=== PATIENT | male | born 1950 | race Caucasian/White ===

== ENCOUNTER 2016-10-05 14:36 | Emergency (ER) | payer OTHER ==
[2016-10-05] MEDS ORDERED: PROPARACAINE 0.5% OPHTH DROPS 15 ML ONE (18:13)
== END 2016-10-05 18:38 | disposition home or self-care (01) ==
DX: H11.31 Conjunctival hemorrhage, right eye (principal); W22.8XXA Striking against or struck by other objects, initial encounter
CPT/HCPCS: 99282; 99283; J3490

== ENCOUNTER 2017-08-15 14:41 | Outpatient (CLI) | payer OTHER | END 2017-08-15 14:42 | disposition home or self-care (01) | LOC: SC 14:41 | PROVIDERS: ATTEND Nurse Practitioner Family | DX: G47.33 Obstructive sleep apnea (adult) (pediatric) (principal) | CPT/HCPCS: 99212; 99214 ==

== ENCOUNTER 2017-11-21 09:12 | Outpatient (CLI) | payer OTHER | END 2017-11-21 09:13 | disposition home or self-care (01) | LOC: SC 09:12 | PROVIDERS: ATTEND Internal Medicine Pulmonary Disease | DX: G47.33 Obstructive sleep apnea (adult) (pediatric) (principal) | CPT/HCPCS: 99212; 99213 ==

== ENCOUNTER 2018-01-10 09:11 | Outpatient (CLI) | payer OTHER | END 2018-01-10 09:12 | disposition home or self-care (01) | LOC: SC 09:11 | PROVIDERS: ATTEND Internal Medicine Pulmonary Disease | DX: G47.33 Obstructive sleep apnea (adult) (pediatric) (principal) | CPT/HCPCS: 99212; 99213 ==

== ENCOUNTER 2018-04-23 15:05 | Emergency (ER) | payer OTHER ==
[2018-04-23 15:55] LABS: BILIRUBIN,URINE NEGATIVE (NEGATIVE); GLUCOSE, URINE (UA) NEGATIVE (NEGATIVE); KETONES,URINE (UA) NEGATIVE (NEGATIVE); LEUKOCYTE ESTERASE, URINE NEGATIVE (NEGATIVE); NITRITE,URINE NEGATIVE (NEGATIVE); OCCULT BLOOD,URINE NEGATIVE (NEGATIVE); PROTEIN,URINE NEGATIVE (NEGATIVE); UROBILINOGEN,URINE 0.2 (NORMAL) E.U./dL (NORMAL)
[2018-04-23 15:57] LABS: CLARITY,URINE CLEAR (CLEAR)
[2018-04-23 15:59] LABS: BASOPHILS % (AUTO) 0.2 %; EOSINOPHILS # (AUTO) 0.3 10^3/uL (0.0-0.7); HGB - HEMOGLOBIN 15.5 g/dL (14.0-18.0); LYMPHOCYTES # (AUTO) 1.2 10^3/uL (1.5-3.5); LYMPHOCYTES % (AUTO) 13.2 %; MEAN CORPUSCULAR HEMOGLOBIN 33.5 pg (27.0-31.0); MEAN CORPUSCULAR HGB CONC 35.5 g/dL (32.0-36.0); MEAN CORPUSCULAR VOLUME 94.5 fL (80.0-94.0); MEAN PLATELET VOLUME 8.2 fL (7.4-11.4); MONOCYTES # (AUTO) 0.9 10^3/uL (0.0-1.0); MONOCYTES % (AUTO) 9.4 %; NEUTROPHILS # (AUTO) 6.9 10^3/uL (1.5-6.6); NEUTROPHILS % (AUTO) 74.2 %; PLT - PLATELET COUNT 135 10^3/uL (130-450); RED BLOOD COUNT 4.64 10^6/uL (4.70-6.10); RED CELL DISTRIBUTION WIDTH 13.2 % (12.0-15.0); WHITE BLOOD COUNT 9.3 x10^3/uL (4.8-10.8)
[2018-04-23 16:02] LABS: ALBUMIN/GLOBULIN RATIO 1.4 (1.0-2.2); BILIRUBIN,TOTAL 0.8 mg/dL (0.2-1.0); CALCIUM 8.7 mg/dL (8.5-10.3); CREATININE 0.8 mg/dL (0.6-1.2); TOTAL PROTEIN 6.9 g/dL (6.7-8.2)
--- NOTE | 2018-04-23 16:16 | ED Physician Documentation ---
PD HPI ABD PAIN - Stated complaint Stated Complaint: LOW AB PX - Chief complaint Chief Complaint: Abd Pain - History obtained from History obtained from: Patient, Family - History of Present Illness Timing - onset: How many weeks ago (1) Timing - duration: Weeks (1) Timing - details: Gradual onset, Still present Quality: Sharp, Pain Location: LLQ Improved by: Laying still Worsened by: Moving, Position, Palpation Associated symptoms: Constipation. No: Fever, Nausea, Vomiting, Hematemesis, Diarrhea Similar symptoms before: Has not had sx before Recently seen: Not recently seen - Additional information Additional information: Previously healthy 67 year old male has developed some pain in his abdomen over the past week. He states he has had a decreased stool output and some bloating of his abdomen and the pain is now localized to the left lower quadrant he has developed some chills and the pain is much worse today than yesterday. He has not had this happen to him previously he is only had a hernia operation at 3 days old previously Review of Systems Constitutional: reports: Chills, Fatigue. denies: Fever Eyes: denies: Decreased vision Ears: denies: Ear pain Nose: denies: Rhinorrhea / runny nose, Congestion Throat: denies: Sore throat Cardiac: denies: Chest pain / pressure, Palpitations Respiratory: denies: Dyspnea, Cough GI: reports: Abdominal Pain, Abdominal Swelling, Nausea, Constipation. denies: Vomiting, Diarrhea : denies: Dysuria, Frequency PD PAST MEDICAL HISTORY - Past Medical History Past Medical History: Yes Cardiovascular: None Respiratory: Sleep apnea, CPAP use Neuro: Migraines Endocrine/Autoimmune: None GI: Hemorrhoids, Other : None HEENT: None Psych: None Musculoskeletal: Osteoarthritis, Chronic back pain Derm: None Other Past Medical History: Rectal fissure surgery - Past Surgical History Past Surgical History: Yes - Present Medications Home Medications: Ambulatory Orders Medication Instructions Recorded Confirmed Ciprofloxacin HCl [Cipro] 500 mg PO BID #14 tablet 04/23/18 Metronidazole [Flagyl] 500 mg PO BID #14 tablet 04/23/18 - Allergies Allergies/Adverse Reactions: Allergies Allergy/AdvReac Type Severity Reaction Status Date / Time No Known Drug Allergies Allergy Verified 04/23/18 15:14 - Social History Does the pt smoke?: No Smoking Status: Never smoker ETOH Use: Wine Does the pt have substance abuse?: No - Immunizations Immunizations are current?: Yes - POLST Patient has POLST: No PD ED PE NORMAL - Vitals Vital signs reviewed: Yes (normal ) - General General: Alert and oriented X 3, No acute distress, Well developed/nourished - HEENT HEENT: Atraumatic, PERRL, EOMI - Neck Neck: Supple, no meningeal sign - Cardiac Cardiac: RRR, No murmur - Respiratory Respiratory: No respiratory distress, Clear bilaterally - Abdomen Abdomen: Soft, Other (distended and tender specifically in the LLQ and no the right or upper abdomen. The bladder is palpable not over distended and non- tender. ) - Back Back: No CVA TTP, No spinal TTP - Derm Derm: Normal color, Warm and dry, No rash - Extremities Extremities: No deformity, No edema - Neuro Neuro: Alert and oriented X 3, No motor deficit, No sensory deficit, Normal speech Eye Opening: Spontaneous Motor: Obeys Commands Verbal: Oriented GCS Score: 15 - Psych Psych: Normal mood, Normal affect Results - Vitals Vitals: Vital Signs - 24 hr 04/23/18 15:12 Temperature 36.4 C L Heart Rate 65 Respiratory 16 Rate Blood Pressure 114/72 O2 Saturation 97 Oxygen O2 Source Room air - Labs Labs: Laboratory Tests 04/23/18 04/23/18 04/23/18 15:20 15:33 15:33 WBC 9.3 RBC 4.64 L Hgb 15.5 Hct 43.8 MCV 94.5 H MCH 33.5 H MCHC 35.5 RDW 13.2 Plt Count 135 MPV 8.2 Neut # (Auto) 6.9 H Lymph # (Auto) 1.2 L [place] # (Auto) 0.9 Eos # (Auto) 0.3 Baso # (Auto) 0.0 Absolute Nucleated RBC 0.01 Nucleated RBC % 0.1 Sodium 138 Potassium 3.4 L Chloride 103 Carbon Dioxide 28 Anion Gap 7.0 BUN 19 Creatinine 0.8 Estimated GFR (MDRD) 97 Glucose 97 Calcium 8.7 Total Bilirubin 0.8 AST 22 ALT 26 Alkaline Phosphatase 68 Total Protein 6.9 Albumin 4.0 Globulin 2.9 Albumin/Globulin Ratio 1.4 Lipase 40 Urine Color YELLOW Urine Clarity CLEAR Urine pH 7.0 Ur Specific Downs <=1.005 Urine Protein NEGATIVE Urine Glucose (UA) NEGATIVE Urine Ketones NEGATIVE Urine Occult Blood NEGATIVE Urine Nitrite NEGATIVE Urine Bilirubin NEGATIVE Urine Urobilinogen 0.2 (NORMAL) Ur Leukocyte Esterase NEGATIVE Ur Microscopic Review NOT INDICATED Urine Culture Comments NOT INDICATED - Rads (name of study) CT abdomen/pelvis with Radiology: Prelim report reviewed (Impression: 1. Acute proximal sigmoid colon diverticulitis without evidence for perforation. 2. 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 3. Mild splenomegaly.), EMP read indepedently, See rad report Procedures - Bedside sono Bedside sono by EMP: With use of bedside ultrasound the bladder is imaged it does not appear over full and it is not specifically sonographically tender. PD MEDICAL DECISION MAKING - ED course Complexity details: reviewed old records, reviewed results, re-evaluated patient , considered differential, d/w patient, d/w family ED course: 67-year-old male with chills and left lower quadrant abdominal pain has uncomplicated diverticulitis on CT exam of the abdomen and pelvis. He is administered oral Cipro and Flagyl here in the emergency department and he is indicating he will not take pain medications home today. - Sepsis Event Vital Signs: Vital Signs - 24 hr 04/23/18 15:12 Temperature 36.4 C L Heart Rate 65 Respiratory 16 Rate Blood Pressure 114/72 O2 Saturation 97 Oxygen O2 Source Room air Departure - Departure Disposition: 01 Home, Self Care Clinical Impression: Diverticulitis of gastrointestinal tract Condition: Stable Instructions: ED Diverticulitis Follow-Up: Rudolph Rosado MD [Primary Care Provider] - Prescriptions: Ciprofloxacin HCl [Cipro] 500 mg PO BID #14 tablet Metronidazole [Flagyl] 500 mg PO BID #14 tablet
[2018-04-23] MEDS ORDERED: IOPAMIDOL-300 100 ML VIAL ONE (16:28)
[2018-04-23] MEDS: SODIUM CHLORIDE 0.9% 1,000 ML IV ONE (16:42)
[2018-04-23] MEDS: IOPAMIDOL-300 100 ML VIAL IVP ONE (16:45)
--- NOTE | 2018-04-23 16:56 | CT Report ---
Procedure Date: 04/23/2018 Accession Number: [id number] / [id number] Procedure: CT - Abdomen/Pelvis W/ CPT Code: FULL RESULT: EXAM: CT ABDOMEN AND PELVIS EXAM DATE: 04/23/2018 04:42 PM. CLINICAL HISTORY: Left lower quadrant pain COMPARISONS: None. TECHNIQUE: Routine helical CT imaging was performed through the abdomen and pelvis. IV contrast: 100 mL Isovue-300. Enteric contrast: No. Reconstructions: Coronal and sagittal. In accordance with CT protocol optimization, one or more of the following dose reduction techniques were utilized for this exam: automated exposure control, adjustment of mA and/or KV based on patient size, or use of iterative reconstructive technique. FINDINGS: Lung Bases: Mildly elevated left hemidiaphragm with adjacent linear atelectasis and/or scarring. Liver: Normal. No focal hepatic lesion. Gallbladder/Bile Ducts: Unremarkable. No visualized stones or biliary ductal dilatation. Spleen: Mildly enlarged, 15 cm in length. Pancreas: Normal. Adrenal Glands: Normal. Kidneys and Ureters: Normal. No stones, hydronephrosis, or hydroureter. Peritoneal Cavity/Bowel: Descending and sigmoid colon diverticulosis. Focal thickening of the proximal sigmoid colon wall with adjacent inflammatory fat stranding, centered around an inflamed diverticulum, compatible with acute diverticulitis. No free fluid or pneumoperitoneum. No rim-enhancing focal fluid collection to suggest abscess. No evidence for bowel obstruction. The appendix is normal. Hazy infiltration of the central mesenteric containing numerous subcentimeter nodes with halos of fatty sparing around the mesenteric vasculature, appearance compatible with mesenteric panniculitis. Pelvic Organs: The prostate gland is mildly enlarged, measuring 5.3 cm in transverse dimension. The bladder is within normal limits. Vasculature: Trace atherosclerotic calcifications in the distal abdominal aorta and left common iliac artery. Bones: Chronic bilateral L5 pars defects with associated severe degenerative disk disease and grade 1 anterolisthesis at L5-S1. No acute bony abnormality. Other: Tiny fat-containing umbilical hernia. Small fat-containing right inguinal hernia. IMPRESSION: 1. Acute proximal sigmoid colon diverticulitis without evidence for perforation. 2. 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 3. Mild splenic megaly. RADIA
[2018-04-23] MEDS: metroNIDAZOLE 250 MG TABLET PO STA (18:07)
[2018-04-23] MEDS: CIPROFLOXACIN 250 MG TABLET PO STA (18:07)
[2018-04-23] MEDS ORDERED: CIPROFLOXACIN 250 MG TABLET PO STA (18:10)
[2018-04-23] MEDS ORDERED: metroNIDAZOLE 250 MG TABLET PO STA (18:10)
[2018-04-23 18:21] VITALS: BP 115/78
== END 2018-04-23 18:21 | disposition home or self-care (01) ==
LOC: ED 15:05
DX: K57.32 Diverticulitis of large intestine without perforation or abscess without bleeding (principal)
CPT/HCPCS: 36415; 74177; 80053; 81003; 83690; 85025; 96360; 99283; 99284; A9270; Q9967; 81001; 87086

== ENCOUNTER 2019-05-23 09:06 | Outpatient (CLI) | payer MEDICARE, OTHER ==
--- NOTE | 2019-05-23 17:08 | CARDIAC PROCEDURE NOTE ---
DATE OF SERVICE: 05/23/2019 Physician: Regi Aldridge MD, [facility] INDICATION: Fatigue, dizziness. CARDIAC RISK FACTORS: Male gender, advanced age. PROCEDURE: After signing informed consent, the patient underwent a Vazquez-protocol treadmill stress test. No imaging was ordered with this test. RESTING HEART RATE: 52. PEAK HEART RATE: 135 (88% predicted maximum heart rate for age. RESTING BLOOD PRESSURE: 137/80. PEAK BLOOD PRESSURE: 170/60. The patient exercised for 9 minutes and 20 seconds on a Vazquez-protocol treadmill stress test. He achieved a peak heart rate of 135 (88% pred max HR) and 10.7 METS. The patient had moderate shortness of breath at peak, oxygen saturation was 95% on room air at peak. He described his perceived exertion at 15-16/20 on a Yari scale indicating significant difficulty. The patient's heart rate was slow to increase, and had good recovery after exercise. The patient had no chest pain and did not describe worsened "fatigue" as he exercised. RESTING EKG: Sinus bradycardia at a rate of 52, left atrial and right atrial enlargement, intraventricular conduction delay. EKG AT PEAK: A ventricular couplet is seen, new ST depressions that are upsloping in leads V4 through V6, new T-wave flattening in leads II and aVF, new ST depressions that are downsloping in leads II, III, aVF. SUMMARY 1. Abnormal resting EKG with bradycardia and biatrial enlargement. 2. Fair to good exercise tolerance. 3. Abnormal EKG at peak, the findings may be suggestive of ischemia. 4. This patient's cardiac risk is MODERATE-HIGH, based on this test. RECOMMENDATIONS: 1. Repeat evaluation for coronary artery disease with imaging is recommended (stress-echo, treadmill-nuclear test or pharmaceutical test with nuclear imaging). 2. Also consider a Holter monitor to evaluate for abnormal bradycardia as the cause of his "fatigue." cc: Miguel A Leyva DO TD: 05/23/2019 16:59 MTDD
== END 2019-05-23 09:07 | disposition home or self-care (01) ==
LOC: DI 09:06
PROVIDERS: ATTEND Family Medicine
DX: R53.83 Other fatigue (principal); R42 Dizziness and giddiness; R00.1 Bradycardia, unspecified; R94.31 Abnormal electrocardiogram [ECG] [EKG]
CPT/HCPCS: 93017

== ENCOUNTER 2020-03-04 07:00 | Outpatient (CLI) | payer MEDICARE, OTHER | END 2020-03-04 23:59 | disposition home or self-care (01) | LOC: LAB.R 07:00 | PROVIDERS: ATTEND Nurse Practitioner Family | DX: R06.02 Shortness of breath (principal); Z20.828 Contact with and (suspected) exposure to other viral communicable diseases | CPT/HCPCS: 81599 ==

== ENCOUNTER 2021-02-02 15:30 | Outpatient (CLI) | payer MEDICARE, OTHER ==
[2021-02-02 15:58] LABS: BASOPHILS % (AUTO) 0.4 %; EOSINOPHILS # (AUTO) 0.2 10^3/uL (0.0-0.7); EOSINOPHILS % (AUTO) 3.7 %; HCT - HEMATOCRIT 45.5 % (42.0-52.0); LYMPHOCYTES # (AUTO) 1.4 10^3/uL (1.5-3.5); LYMPHOCYTES % (AUTO) 25.3 %; MEAN CORPUSCULAR HEMOGLOBIN 32.5 pg (27.0-31.0); MEAN CORPUSCULAR HGB CONC 35.2 g/dL (32.0-36.0); MEAN CORPUSCULAR VOLUME 92.5 fL (80.0-94.0); MEAN PLATELET VOLUME 9.4 fL (7.4-11.4); MONOCYTES # (AUTO) 0.5 10^3/uL (0.0-1.0); MONOCYTES % (AUTO) 9.5 %; NEUTROPHILS # (AUTO) 3.3 10^3/uL (1.5-6.6); NEUTROPHILS % (AUTO) 60.7 %; PLT - PLATELET COUNT 145 10^3/uL (130-450); RED BLOOD COUNT 4.92 10^6/uL (4.70-6.10); RED CELL DISTRIBUTION WIDTH 12.7 % (12.0-15.0); WHITE BLOOD COUNT 5.5 x10^3/uL (4.8-10.8)
[2021-02-02 16:20] LABS: ALBUMIN 4.3 g/dL (3.2-5.5); ALBUMIN/GLOBULIN RATIO 1.7 (1.0-2.2); ALKALINE PHOSPHATASE 63 IU/L (42-121); ALT ALANINE AMINOTRANSFERASE 32 IU/L (10-60); AST ASPARTATE AMINOTRANSFERASE 24 IU/L (10-42); BILIRUBIN,TOTAL 0.7 mg/dL (0.2-1.0); BUN - BLOOD UREA NITROGEN 21 mg/dL (6-20); CARBON DIOXIDE - CO2 29 mmol/L (21-32); CHLORIDE 105 mmol/L (101-111); CHOL/HDL RATIO 4.2 (<5.0); CHOLESTEROL 178 mg/dL; CREATININE 0.9 mg/dL (0.6-1.2); GFR - MDRD 84 (>89); GLUCOSE 111 mg/dL (70-100); HDL CHOLESTEROL 42 mg/dL; LDL CHOLESTEROL,CALCULATED 107 mg/dL; LDL/HDL RATIO 2.5 (<3.6); POTASSIUM 3.8 mmol/L (3.5-5.0); SODIUM 141 mmol/L (135-145); TOTAL PROTEIN 6.9 g/dL (6.7-8.2); TRIGLYCERIDES 143 mg/dL; VLDL CHOLESTEROL 29 mg/dL
== END 2021-02-02 15:31 | disposition home or self-care (01) ==
LOC: LAB 15:30
PROVIDERS: ATTEND Internal Medicine
DX: I10 Essential (primary) hypertension (principal); Z12.5 Encounter for screening for malignant neoplasm of prostate
CPT/HCPCS: 36415; 80053; 80061; 85025; G0103; 83721; 84153

== ENCOUNTER 2022-11-20 19:39 | Emergency (ER) | payer MEDICARE, OTHER ==
--- NOTE | 2022-11-20 20:06 | ED Physician Documentation ---
PD HPI DYSPNEA - Stated complaint Stated Complaint: SOA - Chief complaint Chief Complaint: Resp - History obtained from History obtained from: Patient - History of Present Illness Associated symptoms: Cough. No: Fever - Additional information Additional information: HPI from patient. Patient complains of symptoms that began 3 days ago with nasal congestion, po stnasal drip, rhinorrhea. Subsequently, he also developed a sore throat, although he says that is improved and at the time of this evaluation has mostly resolved. No fevers at home, with Tmax of 99 degrees. His chief concern is the development of a productive cough over the past 1 to 2 days with dyspnea. He denies any chest pain, pressure, squeezing. He does feel as though his lungs are constricted which she says has happened in the past and for which she has been prescribed an albuterol MDI. He says previous such episodes were associated with respiratory infections including pneumonia. He says he has been using the albuterol MDI over the past couple of days with improvement with each use but recurrence of symptoms once the effect wears off.Patient says he took a home COVID test earlier today and the result was negative.Patient says he also took a dose of loratadine earlier today without any significant change in symptoms. Review of Systems Constitutional: denies: Fever Throat: reports: Sore throat Cardiac: denies: Chest pain / pressure Respiratory: reports: Dyspnea, Cough. denies: Hemoptysis PD PAST MEDICAL HISTORY - Past Medical History Cardiovascular: None Respiratory: Sleep apnea, CPAP use Neuro: Migraines Endocrine/Autoimmune: None GI: Hemorrhoids, Other : None HEENT: None Psych: None Musculoskeletal: Osteoarthritis, Chronic back pain Derm: None - Past Surgical History Past Surgical History: Yes - Present Medications Home Medications: Ambulatory Orders Medication Instructions Recorded Confirmed Ciprofloxacin HCl [Cipro] 500 mg PO BID #14 tablet 04/23/18 metroNIDAZOLE [Flagyl] 500 mg PO BID #14 tablet 04/23/18 Albuterol Sulf [Ventolin Hfa 1 - 2 puffs INH Q4HR PRN #1 each 11/20/22 Inhaler] predniSONE [Deltasone] 40 mg PO DAILY 4 Days #8 tablet 11/20/22 - Allergies Allergies/Adverse Reactions: Allergies Allergy/AdvReac Type Severity Reaction Status Date / Time No Known Drug Allergies Allergy Verified 11/20/22 19:47 - Social History Does the pt smoke?: No Smoking Status: Never smoker Does the pt have substance abuse?: No - Immunizations Immunizations are current?: Yes - POLST Patient has POLST: No PD ED PE NORMAL - Vitals Vital signs reviewed: Yes - General General: Alert and oriented X 3, No acute distress, Well developed/nourished - Cardiac Cardiac: RRR, No murmur - Respiratory Respiratory: No respiratory distress PD ED PE EXPANDED - Respiratory Respiratory: Wheezing (trace end-expiratory wheezing bilaterally but good and equal air movement). No: Rhonchi, Rales Results - Vitals Vitals: Oxygen O2 Source Room air - Labs Labs: Laboratory Tests 11/20/22 19:47 Nasal Adenovirus (PCR) NOT DETECTED Nasal B. parapertussis DNA (PCR) NOT DETECTED Nasal Coronavir 229E PCR NOT DETECTED Nasal Coronavir HKU1 PCR NOT DETECTED Nasal Coronavir NL63 PCR NOT DETECTED Nasal Coronavir OC43 PCR NOT DETECTED Nasal Enterovir/Rhinovir PCR DETECTED A Nasal Influenza B PCR NOT DETECTED Nasal Influenza A PCR NOT DETECTED Nasal Parainfluen 1 PCR NOT DETECTED Nasal Parainfluen 2 PCR NOT DETECTED Nasal Parainfluen 3 PCR NOT DETECTED Nasal Parainfluen 4 PCR NOT DETECTED Nasal RSV (PCR) NOT DETECTED Nasal B.pertussis DNA PCR NOT DETECTED Nasal C.pneumoniae (PCR) NOT DETECTED Titus Human Metapneumo PCR NOT DETECTED Nasal M.pneumoniae (PCR) NOT DETECTED Nasal SARS-CoV-2 (PCR) NOT DETECTED - Rads (name of study) chest xray Radiology: Prelim report reviewed, EMP read indepedently, See rad report PD Medical Decision Making - ED course Complexity details: reviewed results, re-evaluated patient, considered differential, d/w patient ED course: Tests ordered and results reviewed by me: respiratory PCR panel, chest xray. No abnormalities on chest xray. Respiratory PCR panel is positive for enterovirus/rhinovirus. Presentation, exam, and test results are suggestive of bronchitis with bronchospasm is given 40mg prednisone PO in ED as well as duoneb treatment, and patient reports improvement with these interventions. Results d/w patient as well as suspected diagnosis with expected course of illness as well as return precautions. Patient says he is nearly out of his albuterol MDI and thus rx is electronically submitted to his pharmacy of choice, as well as rx for four more days of QD prednisone. Departure - Departure Disposition: 01 Home, Self Care Clinical Impression: Bronchitis with bronchospasm Condition: Good Instructions: ED Bronchitis Asthmatic Follow-Up: Jae Centeno MD [Primary Care Provider] - (3-5 days if symptoms persist) Prescriptions: Albuterol Sulf [Ventolin Hfa Inhaler] 1 - 2 puffs INH Q4HR PRN #1 each PRN Reason: Shortness Of Air/Wheezing predniSONE [Deltasone] 40 mg PO DAILY 4 Days #8 tablet Comments: Your chest xray was clear; no evidence of pneumonia at this time. Based on your symptoms and exam, I suspect bronchitis ("chest cold", which typically does not show on chest xray and does not require antibiotics) with bronchospasm (asthma- like constriction of the airways). You were given a dose of steroid (prednisone) in the emergency department; this was given for its anti-inflammatory properties, and typically will help gradually reduce the bronchospasm/difficulty breathing. I have electronically submitted prescriptions for 4 more days of the prednisone as well as an albuterol inhaler to the [facility] pharmacy in [place]. The nasal swab was tested for several different viruses, and this was positive for rhinovirus; this is considered a "common cold" virus. The swab was negative for all the other viruses tested including RSV, influenza, and COVID. Discharge Date/Time: 11/20/22 23:09
--- NOTE | 2022-11-20 20:13 | XRAY Report ---
PROCEDURE: Chest 2 View X-Ray INDICATIONS: cough TECHNIQUE: 2 views of the chest were acquired. COMPARISON: None. FINDINGS: Surgical changes and devices: None. Lungs and pleura: No pleural effusions or pneumothorax. Lungs are clear. Again noted is asymmetric mild elevation of the left hemidiaphragm, also present on a CT scanning procedure from 04/23/2018 Mediastinum: Mediastinal contours are normal. Heart size is normal. Bones and chest wall: No suspicious bony abnormalities. Soft tissues appear unremarkable. IMPRESSION: Chronic mild asymmetric elevation of the left hemidiaphragm, present also in 2018. No acute disease, source of cough is not seen. Reviewed by: Joseph Harvey MD on 11/20/2022 8:12 PM PST Approved by: Joseph Harvey MD on 11/20/2022 8:12 PM PST Station ID: [id number]
[2022-11-20] MEDS ORDERED: IPRATROPIUM/ALBUTEROL 3 ML NEB INH STA (20:25)
[2022-11-20] MEDS ORDERED: predniSONE 20 MG TABLET PO STA (20:25)
[2022-11-20 21:53] LABS: B. PARAPERTUSSIS- RESP PCR PAN NOT DETECTED; B. PERTUSSIS- RESP PCR PANEL NOT DETECTED; C. PNEUMONIAE- RESP PCR PANEL NOT DETECTED; CORONAVIRUS 229E-RESP PCR NOT DETECTED; CORONAVIRUS HKU1-RESP PCR NOT DETECTED; CORONAVIRUS NL63-RESP PCR NOT DETECTED; CORONAVIRUS OC43-RESP PCR NOT DETECTED; HUMAN METAPNEUMOVIRUS NOT DETECTED; INFLUENZA A- RESP PCR PANEL NOT DETECTED; INFLUENZA B - RESP PCR PANEL NOT DETECTED; M. PNEUMONIAE- RESP PCR PANEL NOT DETECTED; PARAINFLUENZA VIRUS 1 NOT DETECTED; PARAINFLUENZA VIRUS 2 NOT DETECTED; PARAINFLUENZA VIRUS 3 NOT DETECTED; PARAINFLUENZA VIRUS 4 NOT DETECTED; RHINOVIRUS/ENTEROVIRUS DETECTED; RSV- RESP PCR PANEL NOT DETECTED; SARS-CoV-2 -RESP PCR PANEL NOT DETECTED
[2022-11-20 21:58] VITALS: BP 144/68
== END 2022-11-20 23:09 | disposition home or self-care (01) ==
LOC: ED 19:39
DX: J40 Bronchitis, not specified as acute or chronic (principal); J21.9 Acute bronchiolitis, unspecified
CPT/HCPCS: 71046; 87633; 94640; 94664; 99283; 99284; J7512

== ENCOUNTER 2022-12-29 07:16 | Emergency (ER) | payer MEDICARE, OTHER ==
--- NOTE | 2022-12-29 07:39 | ED Physician Documentation ---
PD HPI CHEST PAIN - Stated complaint Stated Complaint: L ARM/SIDE PX - Chief complaint Chief Complaint: Cardiac - History obtained from History obtained from: Patient - Additional information Additional information: 72-year-old gentleman with history of intermittent hyperlipidemia, no history of coronary disease, hypertension. He was at rest this morning at 7 AM developed a severe pain in the left bicep that radiated down the arm and up to the left jaw. There was no primary chest pain. Not short of breath with it, although noting he has been short of breath for about a month due to a viral respiratory infection and has been recently on prednisone, not now. He is pain-free now. The total pain lasted about 5 minutes. PD PAST MEDICAL HISTORY - Past Medical History Cardiovascular: None Respiratory: Sleep apnea, CPAP use Neuro: Migraines Endocrine/Autoimmune: None GI: Hemorrhoids, Other : None HEENT: None Psych: None Musculoskeletal: Osteoarthritis, Chronic back pain Derm: None - Past Surgical History Past Surgical History: Yes - Present Medications Home Medications: Ambulatory Orders Medication Instructions Recorded Confirmed Albuterol Sulf [Ventolin Hfa 1 - 2 puffs INH Q4HR PRN #1 each 11/20/22 12/29/22 Inhaler] - Allergies Allergies/Adverse Reactions: Allergies Allergy/AdvReac Type Severity Reaction Status Date / Time latex Allergy Itching Verified 12/29/22 07:21 - Social History Does the pt smoke?: No Smoking Status: Never smoker Does the pt have substance abuse?: No - Immunizations Immunizations are current?: Yes - POLST Patient has POLST: No PD ED PE NORMAL - Vitals Vital signs reviewed: Yes - General General: Alert and oriented X 3, No acute distress - HEENT HEENT: PERRL, EOMI - Neck Neck: Supple, no meningeal sign, No bony TTP - Cardiac Cardiac: RRR, No murmur - Respiratory Respiratory: Other (Mild expiratory wheezes and rhonchi throughout without focal findings) - Abdomen Abdomen: Non tender - Extremities Extremities: No edema, No calf tenderness / cord - Neuro Neuro: Alert and oriented X 3, Normal speech Results - Vitals Vitals: Vital Signs - 24 hr 12/29/22 12/29/22 12/29/22 07:21 07:24 10:01 Temperature 36.2 C L Heart Rate 56 L 59 L 50 L Respiratory 16 14 16 Rate Blood Pressure 147/70 H 120/74 O2 Saturation 96 97 Oxygen O2 Source Room air - EKG (time done) 0731 EKG releavant findings:: EKG personally interpreted by author of this note. Relevant findings are: Rate: Rate (enter#) (55) Rhythm: NSR Intervals: Other ([place] LBBB) QRS: Normal Ischemia: Non specific changes Compare to prior EKG: Unchanged from prior EKG (I was able to look at his resting treadmill EKG on page 9 of 26 from May 23, 2019. No change.) Computer interpretation: Agree with computer - Labs Labs: Laboratory Tests 12/29/22 12/29/22 12/29/22 07:33 07:33 07:33 WBC 5.8 RBC 5.28 Hgb 16.7 Hct 48.4 MCV 91.7 MCH 31.6 H MCHC 34.5 RDW 12.6 Plt Count 144 MPV 9.4 Neut # (Auto) 3.3 Lymph # (Auto) 1.6 [place] # (Auto) 0.5 Eos # (Auto) 0.2 Baso # (Auto) 0.0 Absolute Nucleated RBC 0.00 Nucleated RBC % 0.0 Sodium 140 Potassium 3.9 Chloride 105 Carbon Dioxide 28 Anion Gap 7.0 BUN 18 Creatinine 0.9 Estimated GFR (MDRD) 83 L Glucose 100 Calcium 8.7 Total Bilirubin 0.6 AST 21 ALT 28 Alkaline Phosphatase 69 Troponin I High Sens 5.8 Total Protein 6.9 Albumin 3.9 Globulin 3.0 Albumin/Globulin Ratio 1.3 Lipase 41 12/29/22 09:30 WBC RBC Hgb Hct MCV MCH MCHC RDW Plt Count MPV Neut # (Auto) Lymph # (Auto) [place] # (Auto) Eos # (Auto) Baso # (Auto) Absolute Nucleated RBC Nucleated RBC % Sodium Potassium Chloride Carbon Dioxide Anion Gap BUN Creatinine Estimated GFR (MDRD) Glucose Calcium Total Bilirubin AST ALT Alkaline Phosphatase Troponin I High Sens 5.1 Total Protein Albumin Globulin Albumin/Globulin Ratio Lipase PD Medical Decision Making - ED course ED course: 72-year-old gentleman with atraumatic left arm pain, the concern would be that it was an anginal equivalent. It was not persistent, nor was it radiating to the back. Initial EKG, CBC, troponin, CMP all normal. Given that it was fairly acute repeat troponin was done after 2 hours and flat abdomen normal. Advised follow-up for stress testing. Departure - Departure Disposition: 01 Home, Self Care Clinical Impression: Left arm pain Condition: Good Record reviewed to determine appropriate education?: Yes Instructions: ED Chest Pain Atypical Unkn Cause Comments: The cause of your left arm pain is not clear. No evidence of active cardiac disease. Return if pain recurs. Otherwise follow-up with your primary care physician for consideration for stress testing. Take a baby aspirin a day until this process is complete. Discharge Date/Time: 12/29/22 10:16
[2022-12-29 07:41] LABS: BASOPHILS % (AUTO) 0.5 %; EOSINOPHILS # (AUTO) 0.2 10^3/uL (0.0-0.7); EOSINOPHILS % (AUTO) 3.4 %; HCT - HEMATOCRIT 48.4 % (42.0-52.0); HGB - HEMOGLOBIN 16.7 g/dL (14.0-18.0); LYMPHOCYTES # (AUTO) 1.6 10^3/uL (1.5-3.5); LYMPHOCYTES % (AUTO) 27.6 %; MEAN CORPUSCULAR HEMOGLOBIN 31.6 pg (27.0-31.0); MEAN CORPUSCULAR HGB CONC 34.5 g/dL (32.0-36.0); MEAN CORPUSCULAR VOLUME 91.7 fL (80.0-94.0); MEAN PLATELET VOLUME 9.4 fL (7.4-11.4); MONOCYTES # (AUTO) 0.5 10^3/uL (0.0-1.0); MONOCYTES % (AUTO) 9.3 %; NEUTROPHILS # (AUTO) 3.3 10^3/uL (1.5-6.6); NEUTROPHILS % (AUTO) 57.5 %; PLT - PLATELET COUNT 144 10^3/uL (130-450); RED BLOOD COUNT 5.28 10^6/uL (4.70-6.10); RED CELL DISTRIBUTION WIDTH 12.6 % (12.0-15.0); WHITE BLOOD COUNT 5.8 x10^3/uL (4.8-10.8)
--- OUTSIDE RECORDS SUMMARY | 2022-12-29 07:49 | EXTERNAL MEDICAL SUMMARY RPT | Continuity of Care Document ---
:1950 Author Organization [facility] Address [address] [place] [address] Phone Care Team Providers Name Role Phone Unavailable Unavailable Unavailable Sammy Bejarano Ma Unavailable Unavailable Sammy Bejarano Ma Unavailable Unavailable Sammy Bejarano Ma Unavailable Unavailable Allergies No information. Encounters No information. Functional Status No information. Immunizations No information. Medications date description facility 2022-12-21 00:00 prednisone All 2022-12-21 00:00 prednisone All 2022-12-21 00:00 prednisone All 2022-12-21 00:00 prednisone All 2022-12-21 00:00 prednisone All 2022-12-21 00:00 prednisone All 2022-12-21 00:00 prednisone All 2022-12-21 00:00 prednisone All 2022-12-21 00:00 prednisone All 2022-12-21 00:00 PREDNISONE All 2022-12-21 00:00 PREDNISONE All 2022-12-21 00:00 PREDNISONE All 2022-12-21 00:00 prednisone All 2022-12-21 00:00 prednisone All 2022-12-21 00:00 prednisone All 2022-12-21 00:00 albuterol sulfate All 2022-12-21 00:00 albuterol sulfate All 2022-12-21 00:00 albuterol sulfate All 2022-12-21 00:00 fluticasone propionate All 2022-12-23 00:00 fluticasone propionate All 2022-12-23 00:00 fluticasone propionate All 2022-12-21 00:00 albuterol sulfate All 2022-12-21 00:00 albuterol sulfate All 2022-12-21 00:00 albuterol sulfate All 2022-12-21 00:00 albuterol sulfate All 2022-12-21 00:00 albuterol sulfate All 2022-12-21 00:00 albuterol sulfate All 2022-12-21 00:00 fluticasone propionate All 2022-12-23 00:00 fluticasone propionate All 2022-12-23 00:00 fluticasone propionate All 2022-12-21 00:00 albuterol sulfate All 2022-12-21 00:00 albuterol sulfate All 2022-12-21 00:00 albuterol sulfate All 2022-12-21 00:00 fluticasone propionate All 2022-12-23 00:00 fluticasone propionate All 2022-12-23 00:00 fluticasone propionate All 2022-12-21 00:00 fluticasone propionate All 2022-12-23 00:00 fluticasone propionate All 2022-12-23 00:00 fluticasone propionate All Problems date description facility 2022-12-21 00:00 Acute asthma All 2022-12-21 00:00 Acute asthma All 2022-12-21 00:00 Acute asthma All 2022-12-21 00:00 Viral upper respiratory tract infection All 2022-12-21 00:00 Viral upper respiratory tract infection All 2022-12-21 00:00 Viral upper respiratory tract infection All 2022-12-21 00:00 Acute upper respiratory infections of u nspecified site All 2022-12-21 00:00 Acute upper respiratory infections of u nspecified site All 2022-12-21 00:00 Acute upper respiratory infections of u nspecified site All 2022-12-21 00:00 Asthma, unspecified with (acute) exacer bation All 2022-12-21 00:00 Asthma, unspecified with (acute) exacer bation All 2022-12-21 00:00 Asthma, unspecified with (acute) exacer bation All 2022-12-21 00:00 Acute upper respiratory infection, unsp ecified All 2022-12-21 00:00 Acute upper respiratory infection, unsp ecified All 2022-12-21 00:00 Acute upper respiratory infection, unsp ecified All 2022-12-21 00:00 Unspecified asthma with (acute) exacerb ation All 2022-12-21 00:00 Unspecified asthma with (acute) exacerb ation All 2022-12-21 00:00 Unspecified asthma with (acute) exacerb ation All Procedures date description facility 2022-12-21 00:00 Visit Code Hold All 2022-12-21 00:00 Visit Code Hold All 2022-12-21 00:00 Visit Code Hold All Results/Labs No information. Social History No information. Vital Signs date measurement value units 2022-12-21 00:00 BMI 31.18 kg/m2 2022-12-21 00:00 BP_diastolic 64 mmHg 2022-12-21 00:00 BP_systolic 124 mmHg 2022-12-21 00:00 heart_rate 66 /min 2022-12-21 00:00 height_metric 175.26 cm 2022-12-21 00:00 height_standard 69 in 2022-12-21 00:00 respiration_rate 20 /min 2022-12-21 00:00 temperature_metric 37.06 C 2022-12-21 00:00 temperature_standard 98.7 F 2022-12-21 00:00 weight_metric 95.44 kg 2022-12-21 00:00 weight_standard 210.4 lb
[2022-12-29 07:52] LABS: ALBUMIN 3.9 g/dL (3.2-5.5); ALBUMIN/GLOBULIN RATIO 1.3 (1.0-2.2); BILIRUBIN,TOTAL 0.6 mg/dL (0.2-1.0); CALCIUM 8.7 mg/dL (8.5-10.3); CREATININE 0.9 mg/dL (0.6-1.2); POTASSIUM 3.9 mmol/L (3.5-5.0); TOTAL PROTEIN 6.9 g/dL (6.7-8.2)
--- NOTE | 2022-12-29 08:14 | XRAY Report ---
PROCEDURE: Chest 1 View X-Ray INDICATIONS: Chest Pain TECHNIQUE: One view of the chest was acquired. COMPARISON: 11/20/2022. FINDINGS: Surgical changes and devices: None. Lungs and pleura: No pleural effusions or pneumothorax. Left basilar atelectasis is seen. Elevation of left hemidiaphragm is also seen. Mediastinum: Mediastinal contours appear normal. Heart size is normal. Bones and chest wall: No suspicious bony lesions. Overlying soft tissues appear unremarkable. IMPRESSION: Elevation of left hemidiaphragm and left basilar atelectasis unchanged from prior study. No focal inf iltrate, pleural effusion or pneumothorax. Reviewed by: Darrel Padilla MD on 12/29/2022 8:13 AM PDT Approved by: Darrel Padilla MD on 12/29/2022 8:13 AM PDT Station ID: [id number]
[2022-12-29 10:03] VITALS: BP 120/74
== END 2022-12-29 10:16 | disposition home or self-care (01) ==
LOC: ED 07:16
DX: M79.602 Pain in left arm (principal); E78.5 Hyperlipidemia, unspecified
CPT/HCPCS: 36415; 80053; 83690; 84484; 85025; 93005; 99283; 99284

== ENCOUNTER 2024-01-03 13:45 | Outpatient (CLI) | payer MEDICARE, OTHER ==
--- NOTE | 2024-01-03 15:26 | Sleep Patient Instructions ---
Sleep Center Visit Summary - Patient Visit Information Reason for Visit: Initial consultation - Patient Instructions Additional Instructions: You will continue with CPAP therapy with pressure set at 5-10 cmH2O. A supply prescription will be updated with your DME. I have added an order to update your PAP machine. Please call the office to schedule a compliance follow up once you get your new device. I have added a prescription for a travel machine at your request. We encourage you to continue to try to lose weight. Please follow up with the sleep care office one month after obtaining new device. - Clinic Information Contact: [facility] [address] [place] [address] [email or web address] T: [phone]
--- NOTE | 2024-01-03 15:30 | SLEEP CARE CONSULTATION ---
Information from patient questionnaire entered by Karyn Hare. I have reviewed and concur with the information entered by Karyn Hare. This document represents the service I personally performed and the decisions made by me, Eileen Galloway ARNP. History of Present Illness Service Date and Time: 01/03/2024 1345 Reason for Visit: New patient, Previously diagnosed sleep apnea, sleep apnea on CPAP therapy, Re-establish care Chief Complaint: reports: Other (I USE [employer] CPAP SUPPLIES CUT OFF UNTIL I HAVE A SLEEP TEST) Date of Onset: YRS Usual bedtime: 2330 Time it takes to fall asleep: 5MINS Snores at night: Yes Observed to quit breathing while asleep: Yes Sleeps alone due to snoring: No Number of times waking at night: CONTUNULY WITH OUT CPAP Toss, Turn, or Twitch while sleeping: Yes Recalls having dreams: No Usually gets out of bed at: 6AM Feels refreshed in the morning: Yes Morning headache: No Sleepy or fatigued during the day: Yes Ever fallen asleep while driving: No Takes day naps: Yes Dreams during day naps: No Prior sleep studies: Yes Year and Where: [facility] about 2015; [facility] [place] Additional HPI information: SANDER WISDOM was previsously diagnosed to have moderate, AHI 24, obstructive sleep apnea-hypopnea syndrome as seen in last sleep study around 2015 and comes in today to re-establish care for CPAP therapy. - Parasomnia Symptoms Ever been unable to move upon waking from sleep: No Walks in sleep: No Talks in sleep: Yes Ever acted out dreams in sleep: No Ever felt weak in the knees when startled or emotional: No Bothered by creepy, crawly, restless sensations in legs: No Problems with memory or concentration: Yes CPAP Compliance Data - Data Reviewed with Patient Average duration of nightly device use: 7 hours 15 mins Compliance rate %: 98.9 (178/180 days used) Current pressure setting (cmH2O): 5-10 Average residual AHI: 4.1 Average large leak: 1 mins 25 secs Compliance data discussion: He has a Dreamstation 2. He gets his supplies from [employer]. He is using a full face mask, [employer] [place]. Subjective Missed days of use due to: reports: travel Patient concerns: reports: mask leak noise, dry mouth, nose, throat (dry mouth, does not use humidifier). denies: aerophagia, mask discomfort, air blowing in eyes, condensation in mask/hose, nasal congestion, epistaxis Observed to snore while using device: No Current pressure setting perceived as: comfortable On therapy, patient: reports: sleeping better, awakening more refreshed, being more awake and alert during the day, more rested overall. denies: drowsiness while driving Initial Hartley Sleepiness Scale score: 6 (12-12-23) Past Medical History Past Medical History: reports: Asthma (episodic, with allergies) Social History The patient's occupation is a RETIRED. Patient is and lives in [place]. Have you smoked in the past 12 months: No Alcohol use: Yes Alcohol amount and frequency: OCCASIONALLY 1 X PER WEEK Caffeine use: Yes Caffeine amount and frequency: 16OZ 1 X PER DAY Family History Family history of sleep disordered breathing: Yes Family Hx Sleep Apnea: Father: Snoring, Sleep apnea - Untreated, Sibling: Snoring, Sleep apnea - Untreated Allergies and Home Medications Known drug allergies: Yes (latex) Drug allergies reviewed: Yes Home medication list reviewed: Yes (as listed) Allergy and home medication list: Allergies latex Allergy (Verified 12/30/23 10:49) Itching Home Medications Medication Instructions Recorded Confirmed Last Taken Type Albuterol Sulf [Ventolin Hfa 1 - 2 puffs INH Q4HR PRN #1 each 11/20/22 12/29/22 Unknown Rx Inhaler] Review of Systems Weight gain over past 5 years: 30 Weight loss over past 5 years: 30 Cardiovascular: denies: high blood pressure Respiratory: reports: shortness of breath, wheeze Neurological: denies: headaches Psychiatric: denies: anxiety, depression Musculoskeletal: reports: joint pain Immunologic: reports: sneezing, allergies to food or environment (cats, house dust, guinea pigs, dogs) Physical Exam Vital signs obtained and entered by: IELEEN ROTHMAN Blood Pressure: 133/73 Cuff size: wrist (right) Heart Rate: 50 O2 Saturation: 97 Height: 5 ft 9 in Weight: 200 lb 9.6 oz Body Mass Index: 29.6 BMI Classification: Overweight Heart: regular rate and rhythm Lungs: clear bilaterally Impression and Plan 1. Obstructive Sleep Apnea-Hypopnea Syndrome, moderate, with good treatment compliance and good apnea control. On CPAP therapy, the patient has better sleep quality and is more rested overall. He would like to update his machine, he last updated his machine in 2018. The patients CPAP is over 5 years old and of reasonable use. Thus, the CPAP will be updated. A DWO prescription will be made. Compliance guidelines for new device and follow up discussed. He would also like to be able to obtain a travel CPAP as he is traveling more now. I explained that insurance will no pay for it and he would have to pay for a travel device. I will write a prescription for the travel CPAP for him to purchase on his own. He voiced understanding. Patient's apnea severity and rationale for treatment to reduce apnea, improve sleep quality and reduce cardiovascular and cerebrovascular events was reviewed. 2. Overweight, unspecified. Currently patients BMI is 29.6. Obesity increases the risk of apnea, CPAP pressure requirements and overall health risks especially cardiovascular and diabetes. Thus patient is advised to lose weight. * Continue auto CPAP pressure at 5-10 cmH2O * Update machine * Update supply prescription * Prescription for travel CPAP * Notify me if snoring with mask or feeling that the pressure is too much or too little * Attempt to lose weight * Call this office if any problems using CPAP * Return for follow up one month after obtaining new CPAP, or sooner if concerns arise Counseling Topics: Spare mask, Weight loss health impact Prescriptions: Auto CPAP, Device supplies, Other (Travel CPAP) Follow up with Sleep Care in: other (Compliance visit with new CPAP) Visit Type: In Office Time Spent with Patient (minutes): 24 Provider Statement: I spent 100% of the Face to Face Visit with the patient with greater than 50% spent counseling the patient and coordination of care.
[2024-01-03 15:35] VITALS: BP 133/73; O2SAT 97
== END 2024-01-03 13:46 | disposition home or self-care (01) ==
LOC: SC 13:45
PROVIDERS: ATTEND Nurse Practitioner Family
DX: G47.33 Obstructive sleep apnea (adult) (pediatric) (principal); E66.3 Overweight; Z68.29 Body mass index [BMI] 29.0-29.9, adult
CPT/HCPCS: 99203; G0463; 99212